=== PATIENT | female | born 1965 | race Caucasian/White ===

== ENCOUNTER → 2016-06-21 | Outpatient (CLI) | payer BC ==
[~2016-06-21] MED LIST: CLRUNK PO; FLNIN NAE; HYDR-5688 PO; MULTTAB58 PO
--- NOTE | 2016-06-21 16:52 | MAMMOGRAPHY REPORT ---
UNILATERAL RIGHT DIGITAL DIAGNOSTIC MAMMOGRAM TOMOSYNTHESIS WITH CAD AND TARGETED RIGHT ULTRASOUND: 06/21/2016 CLINICAL HISTORY: 50-year-old woman presents for follow-up in the right breast for probable fibrocys tic changes and 2 clusters of punctate microcalcifications. Patient reports resolution the previous palpable lump in the lateral right breast, that she noted at time of diagnostic workup. TECHNIQUE: Right CC and MLO 2-D digital and tomosynthesis images, spot magnification right CC and ML views were obtained. Current study was also evaluated with a Computer Aided Detection (CAD) system . COMPARISON: Comparison is made to exams dated: 12/18/2015 ultrasound, 12/18/2015 mammogram, 11/12/19 15 mammogram, and 01/22/2013 mammogram - [facility]. BREAST COMPOSITION: The tissue of the right breast is heterogeneously dense, which may obscure smal l masses. FINDINGS: There is a stable benign rim calcification in the superior right breast. Stable groupings of punctate and amorphous microcalcifications in the middle one third of the right breast, along th e posterior nipple line on the spot magnification MLO view. There is stable asymmetry in the medial right breast on the CC view. No new spiculated or irregular mass, focal area of architectural dist ortion or new microcalcifications are identified. Real-time high-resolution ultrasound was performed. The right breast, with particular attention to the lateral aspect of the breast. A small cyst cluster is no longer seen in the 9:00 right breast h ypoechoic nodular areas are less conspicuous in the 10:00 and 8:00 axes of the right breast. There is a benign anechoic simple cyst in the 7:00 right breast, 1 cm from the nipple, measuring 4.5 mm. A 4 mm hypoechoic area in the 2:00 right breast, 1 cm from the nipple, is thought to represent a nor mal fat lobule. IMPRESSION: ACR-BI-RADS CATEGORY 3: PROBABLY BENIGN, TARGETED ULTRASOUND ACR-BI-RADS CATEGORY 3: [place] OBABLY BENIGN 1. Stable mammographic appearance of the right breast including 1-2 groupings of punctate monomorph ic microcalcifications in the central breast. 2. Fluctuating nodularity in the right breast, including resolution of the previously observed clus ter of cysts in the 9:00 axis, 2 cm from the nipple on ultrasound. The overall findings are most co mpatible with benign fibrocystic changes, but another follow-up diagnostic right mammogram including spot magnification views is recommended in 6 more months. Annual left mammography is also due at t hat time. These results and recommendations were discussed with the patient at the time of the exam. Approximately 10% of breast cancers are not detected with mammography. A negative mammographic repor t should not delay biopsy if a clinically suggestive mass is present. Kelly Caicedo M.D. ay/:06/21/2016 16:24:20 Coin Box Inspector: Claire DAS(R)(M), [facility] letter sent: Follow Up Recommended 3 BI-RADS Code: ACR-BI-RADS Category 3: Probably Benign Ultrasound BI-RADS: ACR-BI-RADS Category 3: P robably Benign
== END | disposition home or self-care (01) ==
LOC: C.MAMM 08:01
PROVIDERS: ATTEND Obstetrics & Gynecology
DX: R92.0 Mammographic microcalcification found on diagnostic imaging of breast (principal)

== ENCOUNTER → 2016-12-21 | Outpatient (CLI) | payer BC ==
[~2016-12-21] MED LIST changes: -HYDR-5688 PO
--- NOTE | 2016-12-21 14:26 | MAMMOGRAPHY REPORT ---
BILATERAL DIGITAL DIAGNOSTIC MAMMOGRAM TOMOSYNTHESIS WITH CAD AND TARGETED RIGHT ULTRASOUND: 12/22/19 17 CLINICAL HISTORY: 51-year-old woman presents for bilateral screening mammography and also to reevalua te grouped punctate microcalcifications in the right breast. TECHNIQUE: Bilateral breast tomosynthesis in addition to standard 2D mammography was performed. Spot magnification right cc and ML views were also obtained. Current study was also evaluated with a [employer] Aided Detection (CAD) system. COMPARISON: Comparison is made to exams dated: 06/21/2016 ultrasound, 06/21/2016 mammogram, 12/18/2015 ultrasound, 12/18/2015 mammogram, 11/11/2014 mammogram, and 01/22/2013 mammogram - [facility]. BREAST COMPOSITION: The tissue of both breasts is heterogeneously dense, which may obscure small mas ses. FINDINGS: There is a benign rim calcification in the superior right breast. A 6 mm nodular asymmetry projects over the right pectoralis muscle on the MLO view in the superior posterior breast, but this effaces on the corresponding to metastasis images and has the appearance of normal fibroglandular ti ssue. There is no obvious new mass, focal area of architectural distortion or developing asymmetry b ilaterally. The spot magnification views redemonstrate loosely grouped punctate microcalcifications in the 6:00 middle to posterior right breast. They appear similar in number and distribution compari ng back to the spot magnification views obtained 12/18/2015 and most likely represent benign fibrocys tic change. Another 12 month follow-up diagnostic mammogram including spot magnification views is re commended to ensure at least 2 years of stability to confirm identity. Targeted ultrasound was performed in the superior right breast to assess for the nodular mammographic asymmetry seen on the MLO view. Sonographically normal tissue is seen without evidence of a suspici ous solid or cystic mass. A few benign anechoic simple cysts are seen particularly in the retroareol ar and 11:00 periareolar breast. There is a benign-appearing circumscribed parallel hypoechoic solid versus cystic mass in the 9:00 right breast, 2 cm from the nipple, measuring 6.4 x 2.7 x 6.4 mm, amaya t does not appear significantly changed comparing to the ultrasound performed on 12/18/2015. A cyst cluster previously identified in the 9:00 right breast 2 cm from the nipple is no longer seen. There are isoechoic nodular areas in the 10:00 right breast, 1 cm from the nipple that appear very similar to the ultrasound performed one year ago and most likely represent stomal fibrosis. IMPRESSION: ACR-BI-RADS CATEGORY 3: PROBABLY BENIGN, TARGETED ULTRASOUND ACR-BI-RADS CATEGORY 3: PRO BABLY BENIGN 1. There is no definite mammographic evidence of malignancy in the breasts. Grouped punctate macroca lcifications in the 6:00 middle to posterior breast are stable for one year. Another 12 month follow -up diagnostic mammogram including repeat right spot magnification views is recommended to ensure estefania gabrielle stability. 2. Stable sonographic appearance of the superior right breast including nodular isoechoic areas in t he 10:00 axis, and a benign-appearing solid versus cystic mass in the 9:00 breast. These findings ar e most likely benign, but another targeted ultrasound to the superior right breast is recommended in 12 months. These results and recommendations were discussed with the patient at the time of the exam. Approximately 10% of breast cancers are not detected with mammography. A negative mammographic report should not delay biopsy if a clinically suggestive mass is present. Kelly Caicedo M.D. ay/:12/21/2016 12:29:53 Tunnel Miner: Nenita Brown, [facility] letter sent: Follow Up Recommended 3 BI-RADS Code: ACR-BI-RADS Category 3: Probably Benign Ultrasound BI-RADS: ACR-BI-RADS Category 3: Pr obably Benign
== END | disposition home or self-care (01) ==
LOC: C.MAMM 07:57
PROVIDERS: ATTEND Obstetrics & Gynecology
DX: R92.0 Mammographic microcalcification found on diagnostic imaging of breast (principal)